=== PATIENT | female | born 1960 | race Two or more races ===

== ENCOUNTER 2019-04-13 08:41 | Inpatient (IN) | payer OTHER ==
--- NOTE | 2019-04-13 09:21 | PDOC ---
History of Present Illness - General Chief Complaint: Edema Stated Complaint: INFECTION LT ARM History Source: Patient Exam Limitations: No Limitations - History of Present Illness Initial Comments: 04/13/19 11:07 58 yo F with a hx of HLD and left breast cancer 2009 s/p radiation, masectomy, and chemotherapy with recurrent lympedema with recurrent cellulitis presents to the emergency department with left arm swelling and erythema that began suddenly overnight with associative pain. Per the patient, she states she has had this before in the past (3 months ago in [place]; admitted with IV abx). In addition, the patient states she has fevers and chills. The pain extends from her left arm to the left upper back to the left chest wall. The patient denies N /V/chest pain/SOB, and dysuria/hematuria. Allergies: NKDA Social: Denies tobacco, alcohol, and substance abuse. Past History - Past Medical History Allergies/Adverse Reactions: Allergies Allergy/AdvReac Type Severity Reaction Status Date / Time No Known Allergies Allergy Verified 04/13/19 08:55 Home Medications: Ambulatory Orders Atorvastatin Ca [Lipitor] 40 mg PO HS 04/13/19 COPD: No Disorders: No Hypercholesterolemia: Yes Lung CA: No - Surgical History Gastric Stapling: No - Immunization History Immunization Up to Date: No - Suicide/Smoking/Psychosocial Hx Smoking History: Never smoked Have you smoked in the past 12 months: No Information on smoking cessation initiated: No Hx Alcohol Use: No Drug/Substance Use Hx: No Review of Systems - Review of Systems Able to Perform ROS?: Yes Is the patient limited Yi proficient: No Constitutional: Yes: Chills, Fever, Weakness. No: Diaphoresis HEENTM: No: Eye Pain, Ear Pain, Nose Pain, Throat Pain, Mouth Pain Respiratory: No: Cough, Shortness of Breath, Hemoptysis Cardiac (ROS): No: Chest Pain, Lightheadedness, Palpitations, Syncope, Chest Tightness ABD/GI: No: Constipated, Diarrhea, Nausea, Rectal Bleeding, Vomiting, Tarry Stools : No: Burning, Dysuria, Hematuria Musculoskeletal: Yes: Joint Pain (left shoulder pain), Muscle Pain (left arm). No: Back Pain, Neck Pain Integumentary: Yes: Rash. No: Bruising, Erythema Neurological: No: Headache, Numbness, Tingling, Tremors Psychiatric: No: Change in Appetite Endocrine: No: Unexplained Weight Gain Hematologic/Lymphatic: No: Anemia *Physical Exam - Vital Signs Last Vital Signs Temp Pulse Resp BP Pulse Ox 100.3 F H 118 H 16 103/53 L 97 04/13/19 08:51 04/13/19 08:51 04/13/19 08:51 04/13/19 08:51 04/13/19 08:51 - Physical Exam General Appearance: Yes: Nourished, Appropriately Dressed. No: Apparent Distress, Intoxicated HEENT: positive: EOMI, BRADLEY, Normal Voice, Symmetrical, Pharynx Normal, Hearing Grossly Normal. negative: Pale Conjunctivae, Scleral Icterus (R), Scleral Icterus (L), Muffled/Hoarse voice, Pharyngeal Erythema, Tonsillar Exudate, Tonsillar Erythema, Nasal Congestion, Rhinorrhea, Sinus Tenderness, Excessive drooling Neck: positive: Trachea midline, Supple. negative: Tender, Lymphadenopathy (R) , Lymphadenopathy (L), Tender lateral, Tender midline Respiratory/Chest: positive: Lungs Clear, Normal Breath Sounds. negative: Chest Tender, Respiratory Distress, Accessory Muscle Use, Crackles, Rales, Rhonchi, Stridor, Wheezing Cardiovascular: positive: Regular Rhythm, Regular Rate, S1, S2. negative: Systolic Murmur Gastrointestinal/Abdominal: positive: Normal Bowel Sounds, Flat, Soft. negative : Tender, Distended, Guarding, Rebound Lymphatic: negative: Adenopathy Musculoskeletal: positive: Normal Inspection. negative: CVA Tenderness, Vertebral Tenderness Extremity: positive: Normal Capillary Refill, Normal Range of Motion, Tender ( throughout the arm and shoulder left side), Erythema. negative: Normal Inspection (left arm edema with erythema. warm to the touch. erythema extending to left chest wall with previous masectomy scar and reconstruction. ) Integumentary: positive: Normal Color, Dry, Warm. 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 negative: EOM Palsy, Facial Droop , Numbness ED Treatment Course - LABORATORY CBC & Chemistry Diagram: 04/14/19 06:40 04/14/19 06:40 Medical Decision Making - Medical Decision Making 58 yo F with a hx of HLD and left breast cancer 2010 s/p radiation, masectomy, and chemotherapy with recurrent lympedema with recurrent cellulitis presents to the emergency department with left arm swelling and erythema that began suddenly overnight with associative pain. Initial vitals: Initial Vital Signs Temp Pulse Resp BP Pulse Ox 100.3 F H 118 H 16 103/53 L 97 04/13/19 08:51 04/13/19 08:51 04/13/19 08:51 04/13/19 08:51 04/13/19 08:51 Work up: ddx: cellulitis vs superficial thromboplebitis vs DVT Laboratory Tests 04/13/19 04/13/19 04/13/19 09:43 09:43 10:00 WBC 8.8 RBC 3.81 Hgb 11.7 Hct 35.2 MCV 92.3 MCH 30.6 MCHC 33.2 RDW 13.5 Plt Count 166 MPV 10.2 Absolute Neuts (auto) 8.2 H Neutrophils % 93.5 H Neutrophils % (Manual) 87.0 H Band Neutrophils % 7.0 Lymphocytes % 3.6 L Lymphocytes % (Manual) 4.0 L Monocytes % 2.7 L Monocytes % (Manual) 1 L Eosinophils % 0.1 Eosinophils % (Manual) 0.0 Basophils % 0.1 Basophils % (Manual) 1.0 Myelocytes % (Man) 0 Promyelocytes % (Man) 0 Blast Cells % (Manual) 0 Nucleated RBC % 0 Metamyelocytes 0 Hypochromia 0 Platelet Estimate Normal Polychromasia 0 Poikilocytosis 0 Anisocytosis 0 Microcytosis 0 Macrocytosis 0 PT with INR INR PTT (Actin FS) 30.4 VBG pH POC VBG pCO2 POC VBG pO2 VBG HCO3 VBG O2 Sat (Robbi) VBG Base Excess Sodium Potassium Chloride Carbon Dioxide Anion Gap BUN Creatinine Est GFR (CKD-EPI)AfAm Est GFR (CKD-EPI)NonAf Random Glucose Lactic Acid 1.4 Calcium Total Bilirubin AST ALT Alkaline Phosphatase Creatine Kinase Troponin I Total Protein Albumin 04/13/19 04/13/19 04/13/19 10:00 10:00 10:00 WBC RBC Hgb Hct MCV MCH MCHC RDW Plt Count MPV Absolute Neuts (auto) Neutrophils % Neutrophils % (Manual) Band Neutrophils % Lymphocytes % Lymphocytes % (Manual) Monocytes % Monocytes % (Manual) Eosinophils % Eosinophils % (Manual) Basophils % Basophils % (Manual) Myelocytes % (Man) Promyelocytes % (Man) Blast Cells % (Manual) Nucleated RBC % Metamyelocytes Hypochromia Platelet Estimate Polychromasia Poikilocytosis Anisocytosis Microcytosis Macrocytosis PT with INR 12.00 INR 1.02 PTT (Actin FS) VBG pH 7.44 H POC VBG pCO2 44.9 POC VBG pO2 < 49 H VBG HCO3 29.7 H VBG O2 Sat (Robbi) 62.5 L VBG Base Excess 5.3 H Sodium 142 Potassium 3.2 L Chloride 102 Carbon Dioxide 31 Anion Gap 9 BUN 18.9 H Creatinine 0.7 Est GFR (CKD-EPI)AfAm 109.91 Est GFR (CKD-EPI)NonAf 94.84 Random Glucose 85 Lactic Acid Calcium 9.5 Total Bilirubin 0.8 AST 18 ALT 18 Alkaline Phosphatase 61 Creatine Kinase 121 Troponin I < 0.02 Total Protein 6.8 Albumin 3.9 CXR was within normal limits. EKG within normal limits, no CARLO or ST depression. patient to be started on vanc/zosyn given patients previous cellulitis treatment 3 months ago and hx of carcinoma. Will be admitted. Dispo: Admit *DC/Admit/Observation/Transfer Diagnosis at time of Disposition: Cellulitis - Discharge Dispostion Condition at time of disposition: Stable - Referrals - Patient Instructions - Post Discharge Activity
[2019-04-13] MEDS ORDERED: ACETAMINOPHEN 1000 MG/100 ML VIAL (NON FORMULARY) IVPB ONE (09:37)
[2019-04-13] MEDS ORDERED: SODIUM CHLORIDE 1,000 ML IV STA ×5 (09:37→20:19)
--- NOTE | 2019-04-13 09:44 | PDOC ---
Attending Attestation - Resident Resident Name: GianaSilviano - ED Attending Attestation I have performed the following: I have examined & evaluated the patient, The case was reviewed & discussed with the resident, I agree w/resident's findings & plan, Exceptions are as noted - HPI HPI: 04/13/19 09:40 Ms. Astudillo is a 58 yo LHD F who presents to the ER with a complaint of left arm pain, swelling and fever The patient has a h/o Breast Cancer s/p mastectomy and lymph node resection in 2009 She has had now a total of 4 episodes of cellulitis of her left arm requiring admission and IV antibiotics Pt reports that she was in her usual state of health until last night at approximately 3am when she awoke with chills and left arm/left scapula pain She denies bug bites She denies trauma to the left arm She was admitted to a hospital in [place] for 4 days in January for the same (she could not recall the antibiotic she was given) She was told that excessive use of her arm contributes to her infection PMH: HLD, Breast cancer with left arm lymph edema PSH: mastectomy + LND Meds: Lipitor ALL: NKDA Social: denies alcohol, drug, cigarette use 04/13/19 09:44 - Physicial Exam PE: 04/13/19 09:45 GENERAL: The patient is in no acute distress. ENT: Ears normal, nares patent, oropharynx clear without exudates. Moist mucous membranes. NECK: Normal range of motion, supple LUNGS: Breath sounds equal, clear to auscultation bilaterally. No wheezes, and no crackles. HEART:Regular rate and rhythm, normal S1 and S2 without murmur, rub or gallop. ABDOMEN: Soft, nontender, normoactive bowel sounds. EXTREMITIES: (+) lymph edema LUE, skin is warm, red, tender to palpation, NEUROLOGICAL: Cranial nerves II through XII grossly intact. Normal speech. No focal neurological deficits. SKIN: No lacerations or blisters noted. - Medical Decision Making 04/13/19 09:46 58 yo F h/o breast cancer and LUE lymph edema presenting to the ER with left arm pain, erythema and fever Consistent with Cellulitis Differential also includes DVT, focal consolidation Will do: Sepsis order set IV Vanc and Zosyn (given recent admission) Tylenol Admit 04/13/19 11:07 Laboratory Tests 04/13/19 04/13/19 04/13/19 09:43 09:43 10:00 WBC 8.8 Hgb 11.7 Hct 35.2 Plt Count 166 INR VBG pH POC VBG pCO2 POC VBG pO2 VBG HCO3 BUN 18.9 H Creatinine 0.7 Lactic Acid 1.4 Creatine Kinase 121 Troponin I < 0.02 04/13/19 04/13/19 10:00 10:00 WBC Hgb Hct Plt Count INR 1.02 VBG pH 7.44 H POC VBG pCO2 44.9 POC VBG pO2 < 49 H VBG HCO3 29.7 H BUN Creatinine Lactic Acid Creatine Kinase Troponin I Will admit Duplex negative Will contact ID re: [email or web address] for this patient (She may not warrant broad spectrum IV abx) 04/13/19 11:30 EKG - NSR rate of 97 bpm, axis nml, intervals nml, no st elevation or depression clinical Impression: lymph edema, initial presentation Cellulitis, initial presentation
[2019-04-13] MEDS ORDERED: ACETAMINOPHEN INJECTION 100 ML IVPB ONE (09:47)
[2019-04-13 10:30] LABS: VENOUS PC02 44.9 mmHg (38-52); VENOUS PH 7.44 (7.31-7.41)
[2019-04-13 10:33] LABS: BASO % 0.1 % (0-2.0); EOS % 0.1 % (0-4.5); HEMATOCRIT 35.2 % (32.4-45.2); HEMOGLOBIN 11.7 GM/dL (10.7-15.3); LYMPH % 3.6 % (8-40); MCH 30.6 pg (25.7-33.7); MCHC 33.2 g/dl (32.0-36.0); MEAN CELL VOLUME 92.3 fl (80-96); MEAN PLT VOLUME 10.2 fl (7.5-11.1); MONO % 2.7 % (3.8-10.2); NEUT % 93.5 % (42.8-82.8); PLATELET COUNT 166 K/MM3 (134-434); RBC 3.81 M/mm3 (3.60-5.2); RDW 13.5 % (11.6-15.6); WHITE BLOOD COUNT 8.8 K/mm3 (4.0-10.0)
[2019-04-13 10:38] LABS: VENOUS PO2 < 49 mmHg (28-48)
[2019-04-13 10:45] LABS: INR 1.02 (0.83-1.09)
[2019-04-13] MEDS ORDERED: VANCOMYCIN 1 GM in D5W (PRE-DOCKED) 1,000 MG/250 ML IVPB ONE (11:02)
[2019-04-13] MEDS ORDERED: PIPERACILLIN/TAZOB 3.375 GM 3.375 GM in DEXTROSE 5%-WATER - 50 ML IVPB ONE (11:02)
[2019-04-13 11:04] LABS: ALBUMIN 3.9 g/dl (3.4-5.0); ALK PHOS 61 U/L (45-117); ANION GAP 9 MMOL/L (8-16); BILIRUBIN,TOTAL 0.8 mg/dL (0.2-1); BLOOD UREA NITROGEN 18.9 mg/dL (7-18); CALCIUM 9.5 mg/dL (8.5-10.1); CHLORIDE 102 mmol/L (98-107); CO2 31 mmol/L (21-32); CREATININE 0.7 mg/dL (0.55-1.3); GLUCOSE,RANDOM 85 mg/dL (74-106); POTASSIUM 3.2 mmol/L (3.5-5.1); SGOT/AST 18 U/L (15-37); SGPT/ALT 18 U/L (13-61); SODIUM 142 mmol/L (136-145); TOT PROT 6.8 g/dl (6.4-8.2)
[2019-04-13] MEDS ORDERED: PIPERACILLIN/TAZOB 3.375 GM 3.375 GM/50 ML BAG IVPB ONE (11:04)
[2019-04-13] MEDS ORDERED: VANCOMYCIN 1 GRAM (PRE-DOCKED) 1,000 MG/250 ML BAG IVPB ONE (11:04)
[2019-04-13 11:47] LABS: ANISOCYTOSIS 0; MACROCYTOSIS 0; PLATELET ESTIMATE NORMAL
--- NOTE | 2019-04-13 15:21 | HP ---
CHIEF COMPLAINT: LUE Cellulitis PCP: None HISTORY OF PRESENT ILLNESS: 58 y/o F with PMHx of HLD, Left Breast CA (s/p Chemo/Radiation, Mastectomy with reconstructive sx) presents with LUE Cellulitis. Patient was in her Usual state of health last evening. Today at 0300, patient woke with sudden onset sharp, 101 pain over her left superior shoulder. She walked to the restroom and found a maculopapular rash over her left upper extremity and left breast that was warm without any associated drainage or weeping. She then tried a hot towel and lotion, and ibproufen with minimal relief. She tried to sleep but woke with chills and violent shakes prompting her to visit the ED. Patient recently visited [place] in January, where she was admitted to a hospital and treated with IV ABx for a similar cellulitis. Since then she has been asx until this morning. Denies any associated fevers, chest pain, SOB, vomiting, diarrhea, constipation, dysuria. Denies any associated trauma, bug bites. Her last PO Intake was this morning, Last BM was yesterday, LMP at age 45. ER course was notable for: (1) NS Bolus x 2 (2) Ofirmev (3) Vanco/Zosyn Recent Travel: [place] in January PAST MEDICAL HISTORY: As above PAST SURGICAL HISTORY: Left breast mastectomy with subsequent reconstruction, x1 Social History: Smoking: Denies Alcohol: Socially Drugs: Denies Occupation: [employer] Residence: Home with and children Family History: Mother: Alive age 93, HTN, Previous stroke Father: DM Allergies No Known Allergies Allergy (Verified 04/13/19 08:55) HOME MEDICATIONS: Home Medications Medication Instructions Recorded Atorvastatin Ca [Lipitor] 40 mg PO HS 04/13/19 REVIEW OF SYSTEMS As per HPI PHYSICAL EXAMINATION Vital Signs - 24 hr 04/13/19 04/13/19 08:51 10:22 Temperature 100.3 F H Pulse Rate 118 H Pulse Rate [ 97 H Apical] Respiratory 16 Rate Blood Pressure 103/53 L O2 Sat by Pulse 97 Oximetry (%) GENERAL: A&Ox3, NAD HEAD: NCAT EYES: PERRL, EOMI EARS, NOSE, THROAT: Moist mucous membranes. NECK: Supple, No JVD LUNGS: CTAB. No wheezes, no crackles. HEART: Regular rate and rhythm, normal S1 and S2 without murmur ABDOMEN: Soft, nontender, not distended, + bowel sounds, no guarding, no rebound MUSCULOSKELETAL: No CVA tenderness. EXTREMITIES: Left upper extremity swollen, otherwise no peripheral edema. NEUROLOGICAL: Cranial nerves II-XII intact. Normal speech. SKIN: Diffuse maculopapular rash over the lateral left upper extremity, left shoulder and left breast that is warm, without any drainage or weeping. No obvious signs of trauma. Radiation and surgical healed scars over the left breast. Laboratory Results - last 24 hr 04/13/19 04/13/19 04/13/19 09:43 09:43 10:00 WBC 8.8 RBC 3.81 Hgb 11.7 Hct 35.2 MCV 92.3 MCH 30.6 MCHC 33.2 RDW 13.5 Plt Count 166 MPV 10.2 Absolute Neuts (auto) 8.2 H Neutrophils % 93.5 H Neutrophils % (Manual) 87.0 H Band Neutrophils % 7.0 Lymphocytes % 3.6 L Lymphocytes % (Manual) 4.0 L Monocytes % 2.7 L Monocytes % (Manual) 1 L Eosinophils % 0.1 Eosinophils % (Manual) 0.0 Basophils % 0.1 Basophils % (Manual) 1.0 Myelocytes % (Man) 0 Promyelocytes % (Man) 0 Blast Cells % (Manual) 0 Nucleated RBC % 0 Metamyelocytes 0 Hypochromia 0 Platelet Estimate Normal Polychromasia 0 Poikilocytosis 0 Anisocytosis 0 Microcytosis 0 Macrocytosis 0 PT with INR INR PTT (Actin FS) 30.4 VBG pH POC VBG pCO2 POC VBG pO2 VBG HCO3 VBG O2 Sat (Robbi) VBG Base Excess Sodium Potassium Chloride Carbon Dioxide Anion Gap BUN Creatinine Est GFR (CKD-EPI)AfAm Est GFR (CKD-EPI)NonAf Random Glucose Lactic Acid 1.4 Calcium Total Bilirubin AST ALT Alkaline Phosphatase Creatine Kinase Troponin I Total Protein Albumin 04/13/19 04/13/19 04/13/19 10:00 10:00 10:00 WBC RBC Hgb Hct MCV MCH MCHC RDW Plt Count MPV Absolute Neuts (auto) Neutrophils % Neutrophils % (Manual) Band Neutrophils % Lymphocytes % Lymphocytes % (Manual) Monocytes % Monocytes % (Manual) Eosinophils % Eosinophils % (Manual) Basophils % Basophils % (Manual) Myelocytes % (Man) Promyelocytes % (Man) Blast Cells % (Manual) Nucleated RBC % Metamyelocytes Hypochromia Platelet Estimate Polychromasia Poikilocytosis Anisocytosis Microcytosis Macrocytosis PT with INR 12.00 INR 1.02 PTT (Actin FS) VBG pH 7.44 H POC VBG pCO2 44.9 POC VBG pO2 < 49 H VBG HCO3 29.7 H VBG O2 Sat (Robbi) 62.5 L VBG Base Excess 5.3 H Sodium 142 Potassium 3.2 L Chloride 102 Carbon Dioxide 31 Anion Gap 9 BUN 18.9 H Creatinine 0.7 Est GFR (CKD-EPI)AfAm 109.91 Est GFR (CKD-EPI)NonAf 94.84 Random Glucose 85 Lactic Acid Calcium 9.5 Total Bilirubin 0.8 AST 18 ALT 18 Alkaline Phosphatase 61 Creatine Kinase 121 Troponin I < 0.02 Total Protein 6.8 Albumin 3.9 Active Medications Acetaminophen (Tylenol -) 650 mg PO Q4H PRN PRN Reason: PAIN OR FEVER Enoxaparin Sodium (Lovenox -) 40 mg SQ DAILY RAVI Sodium Chloride (Normal Saline -) 1,000 mls @ 1,000 mls/hr IV ASDIR STA Stop: 04/13/19 15:25 Ampicillin Sodium/Sulbactam (Sodium 1.5 gm/ Sodium Chloride) 100 mls @ 200 mls/ hr IVPB Q8H-IV RAVI Clindamycin Phosphate 300 mg/ (Dextrose) 50 mls @ 104 mls/hr IVPB Q8H-IV RAVI; Protocol Sodium Chloride (Normal Saline -) 1,000 mls @ 75 mls/hr IV ASDIR RAVI IMAGING: -CXR: No acute chest pathology. -LUE DUPLEX: There is no evidence of deep venous thrombosis in the left upper extremity including the jugular and subclavian vein. ASSESSMENT/PLAN: 58 y/o F with PMHx of HLD, Left Breast CA (s/p Chemo/Radiation, Mastectomy with reconstructive sx) presents with LUE Cellulitis. #LUE Cellulitis -Maculopapular rash over LUE and Left breast that is warm and previously tender (4 previous hospitalizations for cellulits, Most recently in January) -AFebrile, Hemodynamically stable, without leukocytosis -Blood cx drawn in ED; Other imaging and labwork noted above -Started on Vanco/Zosyn; Continue with IV Clindamycin 300 q8h, IV Unasyn 1.5 Q8H -IV NS @ 75 mls/hr -Acetaminophen #Hypokalemia -Replete with KCl #FEN -IV NS @ 75 mls/hr -Replete Lytes PRN -Cholesterol/Na diet #PPx -DVT: Lovenox Dispo: Admit to Med-surg Visit type - Emergency Visit Emergency Visit: Yes ED Registration Date: 04/13/19 Care time: The patient presented to the Emergency Department on the above date and was hospitalized for further evaluation of their emergent condition. - New Patient This patient is new to me today: Yes Date on this admission: 04/16/19 - Critical Care Critical Care patient: No ATTENDING PHYSICIAN STATEMENT I saw and evaluated the patient. I reviewed the resident's note and discussed the case with the resident. I agree with the resident's findings and plan as documented. SUBJECTIVE: OBJECTIVE: ASSESSMENT AND PLAN:
[2019-04-13] MEDS: SODIUM CHLORIDE 1,000 ML IV SCH ×3 (15:51→18:56)
[2019-04-13] MEDS: ACETAMINOPHEN 325 MG TABLET (FP) PO PRN (17:07)
[2019-04-13] MEDS ORDERED: SODIUM CHLORIDE 100 ML IVPB ONE (17:20)
[2019-04-13] MEDS ORDERED: AMPICILLIN NA/SULBACTAM NA 1.5 GM VIAL ONE (17:20)
[2019-04-13] MEDS: AMPICILLIN NA/SULBACTAM NA 1.5 GM in SODIUM CHLORIDE 100 ML IVPB SCH (17:35)
--- NOTE | 2019-04-13 17:48 | PN ---
Teaching Attending Note Name of Resident: Cassi Maloney ATTENDING PHYSICIAN STATEMENT I saw and evaluated the patient. I reviewed the resident's note and discussed the case with the resident. I agree with the resident's findings and plan as documented. SUBJECTIVE:58 y/o F with PMHx of HLD, Left Breast CA (s/p Chemo/Radiation, Mastectomy with reconstructive sx) presents with LUE Cellulitis x1 day. sudden onset of redness,swelling and pain in LUE. 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 had similiar presentation in the past (4 times) which was treated with abx. had subjective fevers and chills at home. denies cp, N/V/C/D OBJECTIVE: Last Vital Signs Temp Pulse Resp BP Pulse Ox 100.3 F H 102 H 18 109/73 98 04/13/19 16:21 04/13/19 16:33 04/13/19 16:33 04/13/19 16:33 04/13/19 16:33 General +chills CV S1 S2 RRR no murmur/rub/gallop Lungs CTA B/l no wheezing/rales/rhonchi Extremities circumferential erythema from L wrist extending up and covering the L breast. area is tender and warm. swelling noted to inner upper arm as well as lower forearm just above the wrist. pulse intact. no lacerations or breaks in the skin. no drainage ASSESSMENT AND PLAN: 58 y/o F with PMHx of dyslipidemia, Left Breast CA (s/p Chemo/Radiation, Mastectomy with reconstructive sx) presents with LUE Cellulitis x1 day. 1. LUE cellulitis- medicine admission. LA normal. start clindamycin and unasyn, ivf and pain control. doppler neg for DVT. no records here in the past for cellulitis. Culture obtained. 2. hypokalemia- kcl po 3. dyslipidemia- statin 4. DVT ppx- lovenox 5. spoke with present at bedside. all questions answered. verbalized understanding and agreement
[2019-04-13] MEDS ORDERED: CLINDAMYCIN 300 MG PREMIX IVPB 300 MG/50 ML BAG IVPB SCH (18:00)
[2019-04-13 18:02] VITALS: BMI 27.8
[2019-04-13] MEDS ORDERED: SODIUM CHLORIDE 500 ML IV STA (18:28)
[2019-04-13 18:32] LABS: PH,URINE 8.5 (5.0-8.0); URINE APPEARANCE Clear; URINE BILIRUBIN Negative (NEGATIVE); URINE COLOR Yellow; URINE GLUCOSE (UA) Negative (NEGATIVE); URINE KETONE Negative (NEGATIVE); URINE LEUK ESTERASE Negative (NEGATIVE); URINE NITRITE Negative (NEGATIVE); URINE PROTEIN Negative (NEGATIVE); URINE UROBILINOGEN 0.2 mg/dL (0.2-1.0)
[2019-04-13] MEDS: CLINDAMYCIN 300 MG PREMIX IVPB 300 MG/50 ML BAG IVPB SCH (21:39)
[2019-04-14] MEDS ORDERED: AMPICILLIN NA/SULBACTAM NA 1.5 GM VIAL ONE (01:04)
[2019-04-14] MEDS ORDERED: SODIUM CHLORIDE 100 ML IVPB ONE (01:04)
[2019-04-14] MEDS: ACETAMINOPHEN 325 MG TABLET (FP) PO PRN (01:07)
[2019-04-14] MEDS: AMPICILLIN NA/SULBACTAM NA 1.5 GM in SODIUM CHLORIDE 100 ML IVPB SCH ×3 (01:07→17:15)
[2019-04-14] MEDS ORDERED: SODIUM CHLORIDE 1,000 ML IV STA ×2 (03:16→08:55)
[2019-04-14] MEDS: SODIUM CHLORIDE 1,000 ML IV SCH (03:22)
[2019-04-14] MEDS: CLINDAMYCIN 300 MG PREMIX IVPB 300 MG/50 ML BAG IVPB SCH ×4 (03:24→21:51)
[2019-04-14] MEDS ORDERED: IBUPROFEN 800 MG/8 ML IJ IVPB ONE (03:31)
[2019-04-14] MEDS ORDERED: PT OWN MED DRAWER 7, Y5N ONE ×5 (03:37→20:40)
[2019-04-14 07:16] LABS: BASO % 0.3 % (0-2.0); HEMATOCRIT 27.8 % (32.4-45.2); HEMOGLOBIN 9.4 GM/dL (10.7-15.3); LYMPH % 5.6 % (8-40); MCH 31.4 pg (25.7-33.7); MCHC 33.9 g/dl (32.0-36.0); MEAN CELL VOLUME 92.7 fl (80-96); MEAN PLT VOLUME 10.2 fl (7.5-11.1); MONO % 2.7 % (3.8-10.2); NEUT % 91.4 % (42.8-82.8); PLATELET COUNT 125 K/MM3 (134-434); RDW 13.8 % (11.6-15.6); WHITE BLOOD COUNT 9.8 K/mm3 (4.0-10.0)
[2019-04-14 07:57] LABS: ALBUMIN 2.7 g/dl (3.4-5.0); BILIRUBIN,TOTAL 0.5 mg/dL (0.2-1); BLOOD UREA NITROGEN 11.6 mg/dL (7-18); CALCIUM 7.3 mg/dL (8.5-10.1); CREATININE 0.6 mg/dL (0.55-1.3); MAGNESIUM 1.6 mg/dL (1.8-2.4); PHOSPHOROUS 3.2 mg/dL (2.5-4.9); POTASSIUM 3.1 mmol/L (3.5-5.1); TOT PROT 4.9 g/dl (6.4-8.2)
[2019-04-14] MEDS: ENOXAPARIN NA (PORCINE) 40 MG/0.4 ML DISP.SYRIN SQ SCH (09:06)
--- NOTE | 2019-04-14 09:21 | PN ---
Progress Note (short form) - Note Progress Note: c/o lightheadedness but states she overall feels better. no more chills. denies Cp, SOB, fever, chills, N/V/C/D noted to become septic overnight with development of fevers and noted to be hypotensive which responded to IVF Current Medications Generic Name Dose Route Start Last Admin Trade Name Meir PRN Reason Stop Dose Admin Acetaminophen 650 mg 04/13/19 15:01 04/14/19 01:07 Tylenol - PO 650 mg Q4H PRN Administration PAIN OR FEVER Enoxaparin Sodium 40 mg 04/14/19 10:00 04/14/19 09:06 Lovenox - SQ 40 mg DAILY RAVI Administration Ampicillin Sodium/Sulbactam 100 mls @ 200 mls/hr 04/13/19 18:00 04/14/19 09: 06 Sodium 1.5 gm/ Sodium Chloride IVPB 200 mls/hr Q8H-IV RAVI Administration Clindamycin Phosphate 300 mg in 50 mls @ 100 mls/hr 04/13/19 21:00 04/14/19 03:24 Cleocin 300 Mg Premix Ivpb IVPB 100 mls/hr Q6H-IV RAVI Administration Protocol Sodium Chloride 1,000 mls @ 125 mls/hr 04/13/19 18:46 04/14/19 03:22 Normal Saline - IV 125 mls/hr ASDIR RAVI Administration Sodium Chloride 1,000 mls @ 1,000 mls/hr 04/14/19 08:55 Normal Saline - IV 04/14/19 09:54 ASDIR STA Last Vital Signs Temp Pulse Resp BP Pulse Ox 99.0 F 87 18 97/73 98 04/14/19 06:00 04/14/19 06:00 04/14/19 06:00 04/14/19 06:00 04/13/19 21:00 General NAD CV S1 S2 RRR no murmur/rub/gallop Lungs CTA B/l no wheezing/rales/rhonchi Extremities very faint erythema noted to LUE from wrist to mid arm. swelling medially has resolved but non pitting edema noted to entire arm, unclear if this is new as pt states she always has some swelling. erythema below the L breast but not tender or warm. CBCD WBC 9.8 K/mm3 (4.0-10.0) 04/14/19 06:40 RBC 3.00 M/mm3 (3.60-5.2) L 04/14/19 06:40 Hgb 9.4 GM/dL (10.7-15.3) L 04/14/19 06:40 Hct 27.8 % (32.4-45.2) L D 04/14/19 06:40 MCV 92.7 fl (80-96) 04/14/19 06:40 MCHC 33.9 g/dl (32.0-36.0) 04/14/19 06:40 RDW 13.8 % (11.6-15.6) 04/14/19 06:40 Plt Count 125 K/MM3 (134-434) L D 04/14/19 06:40 MPV 10.2 fl (7.5-11.1) 04/14/19 06:40 CMP Sodium 146 mmol/L (136-145) H 04/14/19 06:40 Potassium 3.1 mmol/L (3.5-5.1) L 04/14/19 06:40 Chloride 114 mmol/L (98-107) H 04/14/19 06:40 Carbon Dioxide 22 mmol/L (21-32) 04/14/19 06:40 Anion Gap 11 MMOL/L (8-16) 04/14/19 06:40 BUN 11.6 mg/dL (7-18) 04/14/19 06:40 Creatinine 0.6 mg/dL (0.55-1.3) 04/14/19 06:40 Calcium 7.3 mg/dL (8.5-10.1) L 04/14/19 06:40 Total Bilirubin 0.5 mg/dL (0.2-1) 04/14/19 06:40 AST 16 U/L (15-37) 04/14/19 06:40 ALT 14 U/L (13-61) 04/14/19 06:40 Alkaline Phosphatase 42 U/L (45-117) L 04/14/19 06:40 Total Protein 4.9 g/dl (6.4-8.2) L 04/14/19 06:40 Albumin 2.7 g/dl (3.4-5.0) L 04/14/19 06:40 Microbiology 04/13/19 09:30 Blood - Peripheral Venous Blood Culture - Preliminary NO GROWTH OBTAINED AFTER 24 HOURS, INCUBATION TO CONTINUE FOR 4 DAYS. ASSESSMENT AND PLAN: 58 y/o F with PMHx of dyslipidemia, Left Breast CA (s/p Chemo/Radiation, Mastectomy with reconstructive sx) presents with LUE Cellulitis x1 day. 1. sepsis due to LUE cellulitis-developed sepsis overnight and aggressive fluid resuscitation was initiated. Tm 103.1 with hypotension which responded to IVF, 6L NS given and giving 7th at this time. BP runs low per patient to low 100's but will monitor closely. as pt clinically appears improved will cont on current abx regimen. unasyn and clindamycin day 2. f/u Cx. 2. hypokalemia- kcl po 3. dyslipidemia- statin 4. DVT ppx- lovenox Visit type - Emergency Visit Emergency Visit: Yes ED Registration Date: 04/13/19 Care time: The patient presented to the Emergency Department on the above date and was hospitalized for further evaluation of their emergent condition. - New Patient This patient is new to me today: No - Critical Care Critical Care patient: No - Discharge Referral Referred to [facility] Med P.C[facility] No
[2019-04-14] MEDS ORDERED: POTASSIUM CHLORIDE ORAL LIQUID 20 MEQ/15 ML PO ONE (10:05)
[2019-04-14] MEDS ORDERED: MAGNESIUM OXIDE 400 MG TABLET (FP) PO ONE (10:06)
[2019-04-14] MEDS ORDERED: SODIUM CHLORIDE 1,000 ML with POTASSIUM CHLORIDE 20 MEQ IVPB SCH (10:07)
[2019-04-14 10:25] LABS: ANISOCYTOSIS 0; MACROCYTOSIS 0; PLATELET ESTIMATE DECREASED
--- NOTE | 2019-04-14 18:51 | EKG ---
Test Reason : Blood Pressure : / mmHG Vent. Rate : 097 BPM Atrial Rate : 097 BPM P-R Int : 164 ms QRS Dur : 084 ms QT Int : 340 ms P-R-T Axes : 070 059 040 degrees QTc Int : 431 ms NORMAL SINUS RHYTHM NONSPECIFIC ST ABNORMALITY ABNORMAL ECG NO PREVIOUS ECGS AVAILABLE Confirmed by KRISHAN VILLATORO MD ([id number]) on 04/14/2019 6:51:38 PM Referred By: Confirmed By:KRISHAN VILLATORO MD
[2019-04-15] MEDS ORDERED: MELATONIN 5 MG TABLETS PO ONE (00:16)
[2019-04-15] MEDS ORDERED: AMPICILLIN NA/SULBACTAM NA 1.5 GM VIAL ONE ×3 (01:50→17:31)
[2019-04-15] MEDS ORDERED: SODIUM CHLORIDE 100 ML IVPB ONE ×3 (01:50→17:32)
[2019-04-15] MEDS: AMPICILLIN NA/SULBACTAM NA 1.5 GM in SODIUM CHLORIDE 100 ML IVPB SCH ×3 (02:05→17:33)
[2019-04-15] MEDS ORDERED: PT OWN MED DRAWER 7, Y5N ONE ×2 (03:01→21:29)
[2019-04-15] MEDS: ACETAMINOPHEN 325 MG TABLET (FP) PO PRN ×3 (03:06→19:53)
[2019-04-15] MEDS: CLINDAMYCIN 300 MG PREMIX IVPB 300 MG/50 ML BAG IVPB SCH ×4 (03:06→21:48)
[2019-04-15] MEDS ORDERED: ONDANSETRON 4 MG/2 ML VIAL IVPUSH ONE (04:03)
[2019-04-15 07:48] LABS: BASO % 0.5 % (0-2.0); EOS % 0.9 % (0-4.5); HEMATOCRIT 29.5 % (32.4-45.2); HEMOGLOBIN 9.7 GM/dL (10.7-15.3); LYMPH % 11.6 % (8-40); MCH 30.8 pg (25.7-33.7); MCHC 32.9 g/dl (32.0-36.0); MEAN CELL VOLUME 93.4 fl (80-96); MEAN PLT VOLUME 11.6 fl (7.5-11.1); MONO % 5.3 % (3.8-10.2); NEUT % 81.7 % (42.8-82.8); PLATELET COUNT 121 K/MM3 (134-434); RBC 3.16 M/mm3 (3.60-5.2); RDW 13.8 % (11.6-15.6)
[2019-04-15 07:57] LABS: BLOOD UREA NITROGEN 6.8 mg/dL (7-18); CALCIUM 7.5 mg/dL (8.5-10.1); CREATININE 0.5 mg/dL (0.55-1.3); MAGNESIUM 1.9 mg/dL (1.8-2.4); POTASSIUM 3.6 mmol/L (3.5-5.1)
[2019-04-15] MEDS ORDERED: POTASSIUM CHLORIDE ORAL LIQUID 20 MEQ/15 ML PO ONE (11:01)
--- NOTE | 2019-04-15 11:01 | PN ---
Teaching Attending Note Name of Resident: Darion Baugh ATTENDING PHYSICIAN STATEMENT I saw and evaluated the patient. I reviewed the resident's note and discussed the case with the resident. I agree with the resident's findings and plan as documented. SUBJECTIVE:overall improved. some residual swelling of the arm, states always more swollen the RUE but this is more than baseline. denies Cp, SOB, fever, chills, N/V/C/D OBJECTIVE: Last Vital Signs Temp Pulse Resp BP Pulse Ox 99.2 F 76 18 112/58 L 100 04/15/19 06:00 04/15/19 06:00 04/15/19 06:00 04/15/19 06:00 04/14/19 21:00 General NAD Lungs R base crackles Extremiteis LUE warm and swollen. no erythema noted on arm or breast ASSESSMENT AND PLAN: 58 y/o F with PMHx of dyslipidemia, Left Breast CA (s/p Chemo/Radiation, Mastectomy with reconstructive sx) presents with LUE Cellulitis x1 day. 1. sepsis due to LUE cellulitis-clinnically improved. afebrile >24H with no tachycardia or hypotension. will d/c IVF. cont clinda and unasyn day 3. cx reported as negative. elevate LUE for swelling 2. hypokalemia- kcl po 3. normocytic anemia- some dilutional component. stable. can f/u with PMD 4. dyslipidemia- statin 5. DVT ppx- lovenox 6. will monitor 24H if remains afebrile tomorrow can likely switch to po abx
--- NOTE | 2019-04-15 12:41 | PN ---
Physical Exam: SUBJECTIVE: 58 y/o female with PMH HLD and LEFT breast CA (s/p chemo/radiation, mastectomy with reconstructive sx) whom presented with LUE cellulitis. Pt seen sitting in chair at bedside. She has no complaints today. She denies NVFD. OBJECTIVE: Vital Signs Period Temp Pulse Resp BP Sys/Rodriguez Pulse Ox Last 24 Hr 98 F-100.1 F 76-86 16-20 108-120/56-74 100 GENERAL: AOx3, in no acute distress. HEAD: NCAT EYES: FOX, EOMI, conjunctiva clear. ENT: Ears normal, nares patent, oropharynx clear without exudates. Moist mucous membranes. NECK: Normal range of motion, supple without lymphadenopathy, JVD, or masses. LUNGS: CTAB. No wheezes, and no crackles. No accessory muscle use. HEART: RRR s1 s2 ABDOMEN: Soft, BS present in all 4 quadrants, non-distended, no JVD, MUSCULOSKELETAL: No bony deformities or tenderness. No CVA tenderness. UPPER EXTREMITIES: LUE edematous, warm but nontender. 2+ pulses, warm, well- perfused. No cyanosis. No clubbing. No peripheral edema. LOWER EXTREMITIES: 2+ pulses, warm, well-perfused. No calf tenderness. No peripheral edema. NEUROLOGICAL: Cranial nerves II-XII intact. Normal speech. Gait not appreciated. PSYCHIATRIC: Cooperative. Good eye contact. Appropriate mood and affect. SKIN: Radiation scars in LEFT axila. Warm, dry, normal turgor, no rashes or lesions noted, normal capillary refill. Laboratory Results - last 24 hr 04/15/19 04/15/19 06:00 06:00 WBC 7.0 RBC 3.16 L Hgb 9.7 L Hct 29.5 L MCV 93.4 MCH 30.8 MCHC 32.9 RDW 13.8 Plt Count 121 L MPV 11.6 H D Absolute Neuts (auto) 5.7 Neutrophils % 81.7 Lymphocytes % 11.6 D Monocytes % 5.3 D Eosinophils % 0.9 D Basophils % 0.5 Nucleated RBC % 0 Sodium 145 Potassium 3.6 Chloride 117 H Carbon Dioxide 23 Anion Gap 4 L BUN 6.8 L Creatinine 0.5 L Est GFR (CKD-EPI)AfAm 122.78 Est GFR (CKD-EPI)NonAf 105.94 Random Glucose 102 Calcium 7.5 L Magnesium 1.9 Active Medications Acetaminophen (Tylenol -) 650 mg PO Q4H PRN PRN Reason: PAIN OR FEVER Last Admin: 04/15/19 15:21 Dose: 650 mg Enoxaparin Sodium (Lovenox -) 40 mg SQ DAILY RAVI Last Admin: 04/15/19 13:09 Dose: 40 mg Ampicillin Sodium/Sulbactam (Sodium 1.5 gm/ Sodium Chloride) 100 mls @ 200 mls/ hr IVPB Q8H-IV RAVI Last Admin: 04/15/19 17:33 Dose: 200 mls/hr Clindamycin Phosphate (Cleocin 300 Mg Premix Ivpb) 300 mg in 50 mls @ 100 mls/ hr IVPB Q6H-IV RAVI; Protocol Last Admin: 04/15/19 14:45 Dose: 100 mls/hr ASSESSMENT/PLAN: 58 y/o female with PMH HLD and LEFT breast CA (s/p chemo/radiation, mastectomy with reconstructive sx) whom presented with LUE cellulitis. # Sepsis due to LUE cellulitis - Clinnically improved - Afebrile > 24H with no tachycardia or hypotension - D/c IVF today - Cont clindamycin and unasyn day 3. Switch to PO abx tomorrow. - Prelim cx NEG - Elevate LUE for swelling # Hypokalemia - Kcl po provided # Normocytic anemia - Mot likely dilutional - Stable - F/u with PCP # HLD - Cont. current home regimen # DVT prophylaxis - Lovenox Darion Baugh MD Visit type - Emergency Visit Emergency Visit: No - New Patient This patient is new to me today: Yes Date on this admission: 04/15/19 - Critical Care Critical Care patient: No - Discharge Referral Referred to [facility] No ATTENDING PHYSICIAN STATEMENT I saw and evaluated the patient. I reviewed the resident's note and discussed the case with the resident. I agree with the resident's findings and plan as documented. SUBJECTIVE: OBJECTIVE: ASSESSMENT AND PLAN:
[2019-04-15] MEDS: ENOXAPARIN NA (PORCINE) 40 MG/0.4 ML DISP.SYRIN SQ SCH (13:09)
[2019-04-16] MEDS ORDERED: SODIUM CHLORIDE 100 ML IVPB ONE ×2 (01:06→09:06)
[2019-04-16] MEDS ORDERED: AMPICILLIN NA/SULBACTAM NA 1.5 GM VIAL ONE ×2 (01:06→09:05)
[2019-04-16] MEDS: AMPICILLIN NA/SULBACTAM NA 1.5 GM in SODIUM CHLORIDE 100 ML IVPB SCH ×2 (01:48→09:20)
[2019-04-16] MEDS ORDERED: PT OWN MED DRAWER 7, Y5N ONE ×3 (02:37→15:35)
[2019-04-16] MEDS: CLINDAMYCIN 300 MG PREMIX IVPB 300 MG/50 ML BAG IVPB SCH ×3 (03:02→15:39)
[2019-04-16] MEDS ORDERED: SIMETHICONE 80 MG TAB.CHEW (FP) PO PRN (06:05)
[2019-04-16 08:27] LABS: BASO % 0.5 % (0-2.0); EOS % 1.2 % (0-4.5); HEMATOCRIT 31.1 % (32.4-45.2); HEMOGLOBIN 10.4 GM/dL (10.7-15.3); LYMPH % 9.7 % (8-40); MCH 30.8 pg (25.7-33.7); MCHC 33.3 g/dl (32.0-36.0); MEAN CELL VOLUME 92.6 fl (80-96); MEAN PLT VOLUME 10.7 fl (7.5-11.1); MONO % 5.7 % (3.8-10.2); NEUT % 82.9 % (42.8-82.8); PLATELET COUNT 154 K/MM3 (134-434); RBC 3.36 M/mm3 (3.60-5.2); RDW 13.8 % (11.6-15.6); WHITE BLOOD COUNT 6.7 K/mm3 (4.0-10.0)
[2019-04-16 08:49] LABS: ALBUMIN 3.2 g/dl (3.4-5.0); BILIRUBIN,TOTAL 0.4 mg/dL (0.2-1); BLOOD UREA NITROGEN 5.6 mg/dL (7-18); CALCIUM 8.4 mg/dL (8.5-10.1); CREATININE 0.6 mg/dL (0.55-1.3); MAGNESIUM 2.2 mg/dL (1.8-2.4); PHOSPHOROUS 2.4 mg/dL (2.5-4.9); POTASSIUM 3.7 mmol/L (3.5-5.1); TOT PROT 6.2 g/dl (6.4-8.2)
[2019-04-16] MEDS: ENOXAPARIN NA (PORCINE) 40 MG/0.4 ML DISP.SYRIN SQ SCH (09:20)
[2019-04-16] MEDS: ACETAMINOPHEN 325 MG TABLET (FP) PO PRN (09:21)
[2019-04-16] MEDS ORDERED: LACTOBACILLUS ACIDOPHILUS 1 TABLET PO SCH (12:00)
--- NOTE | 2019-04-16 13:00 | PN ---
Teaching Attending Note Name of Resident: Darion Baugh ATTENDING PHYSICIAN STATEMENT I saw and evaluated the patient. I reviewed the resident's note and discussed the case with the resident. I agree with the resident's findings and plan as documented. SUBJECTIVE:asymptomatic. denies Cp, SOB, fever, chills, N/v/C/D OBJECTIVE: Last Vital Signs Temp Pulse Resp BP Pulse Ox 98.5 F 68 18 136/69 100 04/16/19 09:18 04/16/19 09:18 04/16/19 09:18 04/16/19 09:18 04/16/19 09:00 General NAD LungsCTA B/L no wheezing/rales/rhonchi Extremiteis LUE swollen. no erythema/warm/tenderness noted on arm or breast ASSESSMENT AND PLAN: 58 y/o F with PMHx of dyslipidemia, Left Breast CA (s/p Chemo/Radiation, Mastectomy with reconstructive sx) presents with LUE Cellulitis x1 day. 1. sepsis due to LUE cellulitis-clinnically improved. continues to have swelling which is slightly more than baseline. remains afebrile and leukocytosis resolved. can switch to augementin and clinda to complete 7 day course. elevate LUE for swelling 2. hypokalemia- resolved 3. normocytic anemia- some dilutional component. stable. can f/u with PMD 4. dyslipidemia- statin 5. DVT ppx- lovenox 6. d/c home
[2019-04-16 14:17] VITALS: BP 128/58; PULSE 60; TEMP 98.2
--- NOTE | 2019-04-16 16:17 | DS ---
Physical Exam: SUBJECTIVE: 58 y/o female with PMH HLD and LEFT breast CA (s/p chemo/radiation, mastectomy with reconstructive sx) whom presented with LUE cellulitis. Pt seen sitting in chair at bedside. She reported some gas in the AM, which improved with simethicone but otherwise has no complaints today. She denies NVFD. OBJECTIVE: Vital Signs Period Temp Pulse Resp BP Sys/Rodriguez Pulse Ox Last 24 Hr 98.2 F-98.6 F 60-72 17-18 117-136/58-73 100-100 PHYSICAL EXAM GENERAL: AOx3, in no acute distress. HEAD: NCAT EYES: FOX, EOMI, conjunctiva clear. ENT: Ears normal, nares patent, oropharynx clear without exudates. Moist mucous membranes. NECK: Normal range of motion, supple without lymphadenopathy, JVD, or masses. LUNGS: CTAB. No wheezes, and no crackles. No accessory muscle use. HEART: RRR s1 s2 ABDOMEN: Soft, BS present in all 4 quadrants, non-distended, no JVD, MUSCULOSKELETAL: No bony deformities or tenderness. No CVA tenderness. UPPER EXTREMITIES: LUE edematous, warm but nontender. 2+ pulses, warm, well- perfused. No cyanosis. No clubbing. No peripheral edema. LOWER EXTREMITIES: 2+ pulses, warm, well-perfused. No calf tenderness. No peripheral edema. NEUROLOGICAL: Cranial nerves II-XII intact. Normal speech. Gait not appreciated. PSYCHIATRIC: Cooperative. Good eye contact. Appropriate mood and affect. SKIN: Radiation scars in LEFT axila. Warm, dry, normal turgor, no rashes or lesions noted, normal capillary refill. LABS Laboratory Results - last 24 hr 04/16/19 04/16/19 08:05 08:05 WBC 6.7 RBC 3.36 L Hgb 10.4 L Hct 31.1 L MCV 92.6 MCH 30.8 MCHC 33.3 RDW 13.8 Plt Count 154 D MPV 10.7 Absolute Neuts (auto) 5.5 Neutrophils % 82.9 H Lymphocytes % 9.7 Monocytes % 5.7 Eosinophils % 1.2 Basophils % 0.5 Nucleated RBC % 0 Sodium 143 Potassium 3.7 Chloride 111 H Carbon Dioxide 26 Anion Gap 6 L BUN 5.6 L Creatinine 0.6 Est GFR (CKD-EPI)AfAm 115.63 Est GFR (CKD-EPI)NonAf 99.77 Random Glucose 86 Calcium 8.4 L Phosphorus 2.4 L Magnesium 2.2 Total Bilirubin 0.4 AST 32 ALT 38 Alkaline Phosphatase 64 Total Protein 6.2 L Albumin 3.2 L HOSPITAL COURSE: Date of Admission:04/13/19 58 y/o female with PMH HLD and LEFT breast CA (s/p chemo/radiation, mastectomy with reconstructive sx) whom presented with LEFT arm pain, was admitted for LUE cellulitis. Initially, she developed sepsis and was provided aggressive fluid resuscitation. Tm 103.1 with hypotension, which responded to IVF, 7L NS given. Pt clinically improved with abx regimen of unasyn and clindamycin. Pt continued to have swelling, which is slightly more than baseline. Pt was educated on usefulness of keeping arm elevated, consdiering lyph node resection in the axillla. She remained afebrile and presenting leukocytosis resolved. Pt was switched to PO augementin and clinda to complete a 7 day course. During the stay she demonstrated hypokalemia, which resolved. A normocytic anemia was appreciated but likely 2/2 dilution. Pt advised to f/u with PMD. During the stay chronic conditions were treated with home regimen. Dyslipidemia was tx with home dose statin. Pt was d/c home. Date of Discharge: 04/16/19 Darion Baugh MD Minutes to complete discharge: 40 Discharge Summary Reason For Visit: CELLULITIS Current Active Problems Cellulitis (Acute) Condition: Stable - Instructions Diet, Activity, Other Instructions: YOUR VISIT You were admitted to the hospital for care of an infection of your left arm. You received fluids and antibiotics. Elevate your left arm when sitting to help with the swelling. MEDICATIONS Please continue to take your home medications as prescribed. You have 2 *NEW* medications to take - Augementin 875mg twice a day by mouth with food for 4 days - Clindamycin 300 mg by mouth 4 times a day ADDITIONAL CARE Please make an appointment to see a primary care provider 1 week from today. Since you do not currently have one, you can be seen at the [facility] residents clinic located at [address] [place] [address]. Please call to make an appointment. If you would like to continue seeing Dr. Darion Baugh, please ask for a Tuesday morning appointment. ADDITIONAL INFORMATION Please call 911 or come directly to the emergency department if you experience unusual headache, vision change, shortness of breath, chest pain, numbness, tingling, loss of alertness/awareness, loss of function, unusual bleeding or any alarming symptoms. Referrals: Alex Ojeda MD [Staff Physician] - 1 Week Disposition: HOME - Home Medications Comprehensive Discharge Medication List: Ambulatory Orders Atorvastatin Ca [Lipitor] 40 mg PO HS 04/13/19 Amoxicillin/Potassium Clav [Augmentin 875-125 Tablet] 1 each PO Q12H 4 Days #8 tablet 04/16/19 Clindamycin [Cleocin -] 300 mg PO Q6H 4 Days #16 capsule 04/16/19 Lactobacillus Acidophilus [Bacid -] 1 tab PO DAILY 30 Days #30 tab 04/16/19 This patient is new to me today: No Emergency Visit: No Critical Care patient: No - Discharge Referral Referred to [facility] Med [facility].C[facility] No ATTENDING PHYSICIAN STATEMENT I saw and evaluated the patient. I reviewed the resident's note and discussed the case with the resident. I agree with the resident's findings and plan as documented. SUBJECTIVE: OBJECTIVE: ASSESSMENT AND PLAN:
[2019-04-16] MEDS ORDERED: ATORVASTATIN CA 40 MG TABLET (FP) PO SCH (22:00)
== END 2019-04-16 17:06 | disposition home or self-care (01) | DRG 602 ==
LOC: JER 08:41 → JERBED 14:47 → J7W 16:58
PROVIDERS: ADMIT Internal Medicine; ATTEND Internal Medicine
DX: L03.114 Cellulitis of left upper limb (principal); A41.9 Sepsis, unspecified organism; R21 Rash and other nonspecific skin eruption; E87.6 Hypokalemia; I95.9 Hypotension, unspecified; E78.5 Hyperlipidemia, unspecified; Z85.3 Personal history of malignant neoplasm of breast; Z90.12 Acquired absence of left breast and nipple; D64.9 Anemia, unspecified
CPT/HCPCS: 36415; 71045-TC-FY; 80048; 80053; 81003; 82550; 82803; 83605; 83735; 84100; 84484; 85025; 85610; 85730; 87040; 87086; 93005; 93010; 93971; 97116-GP; 99283-25; J0131; J7030

== ENCOUNTER 2019-07-02 12:29 | Emergency (ER) | payer OTHER ==
[2019-07-02 12:40] VITALS: BP 128/73; PULSE 93; TEMP 98; BMI 27.1
--- NOTE | 2019-07-02 14:04 | PDOC ---
History of Present Illness - General Chief Complaint: Rash Stated Complaint: RASH Time Seen by Provider: 07/02/19 13:25 - History of Present Illness Initial Comments: 07/02/19 14:01 58-year-old female with a 10-year past medical history of breast cancer underwent radiation and is now cancer free presents for evaluation of a rash on her left arm which began this morning. No systemic symptoms. Past History - Past Medical History Allergies/Adverse Reactions: Allergies Allergy/AdvReac Type Severity Reaction Status Date / Time No Known Allergies Allergy Verified 07/02/19 12:40 Home Medications: Ambulatory Orders Atorvastatin Ca [Lipitor] 40 mg PO HS 04/13/19 Amoxicillin/Potassium Clav [Augmentin 875-125 Tablet] 1 each PO Q12H 4 Days #8 tablet 04/16/19 Clindamycin [Cleocin -] 300 mg PO Q6H 4 Days #16 capsule 04/16/19 Lactobacillus Acidophilus [Bacid -] 1 tab PO DAILY 30 Days #30 tab 04/16/19 Acyclovir [Zovirax -] 800 mg PO 5XD #35 tablet 07/02/19 Anemia: Yes Cancer: Yes (breast with mastectomy, radiation , chemo) COPD: No GI Disorders: Yes (gastritis) Disorders: No Hypercholesterolemia: Yes Lung CA: No - Surgical History Abdominal Surgery: Yes (tummy tuck) Gastric Stapling: No - Immunization History Immunization Up to Date: No - Psycho Social/Smoking Cessation Hx Smoking History: Never smoked Have you smoked in the past 12 months: No Hx Alcohol Use: No Drug/Substance Use Hx: No Hx Substance Use Treatment: No Review of Systems - Review of Systems Constitutional: No: Fever Integumentary: Yes: Rash *Physical Exam - Vital Signs Last Vital Signs Temp Pulse Resp BP Pulse Ox 98 F 93 H 18 128/73 99 07/02/19 12:38 07/02/19 12:38 07/02/19 12:38 07/02/19 12:38 07/02/19 12:38 - Physical Exam Comments: 07/02/19 14:02 There is a vesicular rash on left upper extremity 1 open vesicle on the proximal aspect of the left arm Medical Decision Making - Medical Decision Making 07/02/19 14:02 Shingles will treat with acyclovir and dermatology follow-up Discharge - Discharge Information Problems reviewed: Yes Clinical Impression/Diagnosis: Shingles outbreak Condition: Stable Disposition: HOME - Admission No - Additional Discharge Information Prescriptions: Acyclovir [Zovirax -] 800 mg PO 5XD #35 tablet - Follow up/Referral Referrals: Lazara Martinez MD [Primary Care Provider] - Nubia Mills MD [Staff Physician] - - Patient Discharge Instructions Patient Printed Discharge Instructions: [place], DI for Shingles Additional Instructions: Please take the acyclovir as directed. Finish the entire course. Without fail follow-up with dermatology in 1 to 2 days for further evaluation and treatment options. Tylenol as directed for pain. Return to the emergency room for worsening symptoms. - Post Discharge Activity
== END 2019-07-02 14:31 | disposition home or self-care (01) ==
LOC: JERFT 12:29
DX: B02.9 Zoster without complications (principal); E78.00 Pure hypercholesterolemia, unspecified; Z86.2 Personal history of diseases of the blood and blood-forming organs and certain disorders involving the immune mechanism; Z85.3 Personal history of malignant neoplasm of breast; Z90.10 Acquired absence of unspecified breast and nipple; Z92.3 Personal history of irradiation
CPT/HCPCS: 99281-25